=== PATIENT | female | born 1940 | race Caucasian/White ===

== ENCOUNTER 2019-09-02 15:35 | Outpatient (CLI) | payer MEDICARE ==
[~2019-09-02 15:35] MED LIST: LANS30CA60 PO; LEVO88TA2 PO; LISI-167 PO
== END 2019-09-02 23:59 | disposition home or self-care (01) ==
LOC: CVU 15:35
PROVIDERS: ATTEND Internal Medicine Cardiovascular Disease
DX: I08.0 Rheumatic disorders of both mitral and aortic valves (principal); I26.02 Saddle embolus of pulmonary artery with acute cor pulmonale
CPT/HCPCS: 93306

== ENCOUNTER 2019-09-03 10:37 | Outpatient (CLI) | payer MEDICARE ==
[2019-09-03] MEDS ORDERED: OMNIPAQUE 350 MG/ML, 100ML BOTTLE ONE ×2 (14:08→14:46)
== END 2019-09-03 23:59 | disposition home or self-care (01) ==
LOC: CFH 10:37
PROVIDERS: ATTEND Internal Medicine Cardiovascular Disease
DX: J43.2 Centrilobular emphysema (principal); J84.10 Pulmonary fibrosis, unspecified; I82.409 Acute embolism and thrombosis of unspecified deep veins of unspecified lower extremity; R06.02 Shortness of breath; I26.02 Saddle embolus of pulmonary artery with acute cor pulmonale
CPT/HCPCS: 71275; 93970; Q9967